=== PATIENT | male | born 1985 | race Caucasian/White ===

== ENCOUNTER 2017-02-20 19:18 | Emergency (ER) | payer SELFPAY ==
[2017-02-20] MEDS ORDERED: ALLERGY MED (19:49)
[2017-02-20] MEDS ORDERED: NEXIUM40 M1 (19:49)
[2017-02-20] MEDS ORDERED: IBUPROFEN200 M2 (19:50)
[2017-02-20 20:23] LABS: BASO % 0.3 % (0-2); EOS % 1.8 % (0-7); EOSINOPHIL ABSOLUTE COUNT 0.2 tho/cmm (0.0-0.7); HCT-HEMATOCRIT 47.2 % (36.0-53.5); HGB-HEMOGLOBIN 16.4 gm/dl (13.5-17.0); IMMATURE GRANULOCYTES ABSOLUTE 0.02 tho/cmm (0-0.03); IMMATURE GRANULOCYTES PERCENT 0.2 % (0-0.3); LYMPH % 17.7 % (20-45); MCH (MEAN CORPUSCULAR HGB) 29.5 pg (28.0-32.0); MCHC MEAN CORPUSCULAR HGB CONC 34.7 % (32.0-36.0); MEAN PLATELET VOLUME 10.2 cmc (9.4-12.4); MONOCYTE ABSOLUTE COUNT 0.7 tho/cmm (0.0-1.2); NEUTROPHIL ABSOLUTE COUNT 8.5 tho/cmm (1.6-8.0); NEUTROPHIL-AUTOMATED 8.5 tho/cmm (1.6-8.0); PLATELET COUNT 291 tho/cmm (150-450); RED BLOOD COUNT 5.55 mil/cmm (4.40-5.70); RED CELL DISTRIBUTION WIDTH 13.5 % (12.4-16.4); WHITE BLOOD COUNT 11.5 tho/cmm (4.0-10.0)
[2017-02-20 20:43] LABS: ALKALINE PHOSPHATASE 84 U/L (33-138); ALT/SGPT 40 U/L (12-78); ANION GAP 11 mmol/L (0-20); AST/SGOT 20 U/L (10-40); BILIRUBIN,TOTAL 0.5 mg/dl (0.0-1.5); BLOOD UREA NITROGEN 9 mg/dl (6-24); CALCIUM 8.8 mg/dl (8.5-10.5); CARBON DIOXIDE-VENOUS 26 mmol/L (22-32); CHLORIDE 106 mmol/l (96-110); CREATININE 1.14 mg/dl (0.60-1.30); GLUCOSE 116 mg/dL (70-110); POTASSIUM 3.7 mmol/L (3.7-5.1); SODIUM 139 mmol/L (135-145); eGFR VALUE FOR BLACK >90 mL/Min
[2017-02-20 21:06] LABS: URINE BILIRUBIN NEGATIVE (NEG); URINE BLOOD NEGATIVE (NEG); URINE GLUCOSE (UA) NEGATIVE (NEG); URINE KETONE NEGATIVE (NEG); URINE LEUKOCYTE ESTERASE NEGATIVE (NEG); URINE NITRITE NEGATIVE (NEG); URINE PROTEIN NEGATIVE (NEG); URINE SPECIFIC GRAVITY 1.015 (1.003-1.030)
[2017-02-20 21:07] LABS: URINE APPEARANCE CLEAR; URINE COLOR YELLOW
[2017-02-20] MEDS ORDERED: DICLOFENAC SODI75 M2 PO (21:21)
== END 2017-02-20 21:35 ==
LOC: EDMED 19:18
PROVIDERS: Physician Assistant
DX: J98.8 Other specified respiratory disorders (principal); J45.909 Unspecified asthma, uncomplicated; F17.220 Nicotine dependence, chewing tobacco, uncomplicated; Z88.1 Allergy status to other antibiotic agents; Z88.0 Allergy status to penicillin
CPT/HCPCS: J1885